=== PATIENT | male | born 1995 | race Caucasian/White ===

== ENCOUNTER 2019-07-15 20:08 | Emergency (ER) | payer MEDICAID, OTHER ==
[~2019-07-15] VITALS: Ht 177.8 cm; Wt 134.7 kg
[2019-07-15 20:41] VITALS: BP 144/75
--- NOTE | 2019-07-15 20:50 | NUR ---
PT AMBULATED TO LOBBY TO A/W BED
--- NOTE | 2019-07-15 21:09 | NUR ---
PT TAKEN TO CHAIR D
[2019-07-15 21:51] VITALS: BP 144/75
--- NOTE | 2019-07-15 21:51 | NUR ---
PT ASSESSED BY VERA MOBLEY.
== END 2019-07-15 21:51 | disposition home or self-care (01) ==
LOC: MED 20:08
DX: R44.8 Other symptoms and signs involving general sensations and perceptions (principal); F17.210 Nicotine dependence, cigarettes, uncomplicated
CPT/HCPCS: 99283